=== PATIENT | female | born 1985 | race Caucasian/White ===

== ENCOUNTER 2021-03-01 08:09 | Day surgery (SDC) | payer MEDICAID ==
[~2021-03-01] VITALS: Ht 172.7 cm; Wt 95.9 kg
[~2021-03-01 08:09] MED LIST: ALDACTONE100 MG PO; BUSPIRONE HCL30 MG PO; ELAVIL75 MG PO; LAMICTAL25 MG PO; NP THYROID30 MG PO
[2021-03-01 08:25] LABS: HEMATOCRIT 46.6 % (36.0-48.0); HEMOGLOBIN 15.6 g/dL (12-16); MCH 30.4 pg (26.0-34.0); MCHC 33.5 g/dL (31.0-37.0); MCV 90.8 fL (80.0-100.0); RBC 5.13 10x6/uL (4.00-5.40); RDW 13.4 % (11.5-14.5); WBC 7.6 10x3/uL (4.8-10.8)
[2021-03-01 08:41] LABS: HCG SERUM NEGATIVE (NEGATIVE)
[2021-03-01 09:04] VITALS: BP 119/77; Ht 172.7 cm; Wt 95.9 kg
--- NOTE | 2021-03-01 12:49 | NUR ---
PT STATES PAIN IS LIKE MENSTRUAL CRAMPS. STATE SHE DOES HAVE SHARP PAIN AT INCISION SITES. SEE EMAR
--- NOTE | 2021-03-01 14:05 | NUR ---
DISCHARGED VIA W/C, ACCOMPANIED BY THIS NURSE, TO POV WITH FATHER DRIVING. ALL BELONGINGS WITH PT.
== END 2021-03-01 14:05 | disposition home or self-care (01) ==
LOC: D.OPS 08:09
PROVIDERS: Anesthesiology; ATTEND Obstetrics & Gynecology Maternal & Fetal Medicine
DX: N92.0 Excessive and frequent menstruation with regular cycle (principal); Z30.2 Encounter for sterilization